=== PATIENT | male | born 1985 | race Caucasian/White ===

== ENCOUNTER 2022-10-18 23:29 | Emergency (ER) | payer OTHER ==
[~2022-10-18] VITALS: Ht 177.8 cm; Wt 70.3 kg
[2022-10-18 23:35] VITALS: BP 132/81
== END 2022-10-19 01:17 ==
LOC: ER 23:31
DX: J34.89 Other specified disorders of nose and nasal sinuses (principal); Z20.822 Contact with and (suspected) exposure to COVID-19
CPT/HCPCS: 99283; 87426; C9803